=== PATIENT | male | born 1990 | race Caucasian/White ===

== ENCOUNTER 2017-03-31 14:49 | Inpatient (IN) | payer OTHER ==
[~2017-03-31] VITALS: Ht 170.2 cm; Wt 172.4 kg
[2017-03-31] MEDS ORDERED: ONDANSETRON 4 MG/2 ML VIAL IM PRN (15:30)
[2017-03-31] MEDS ORDERED: DICYCLOMINE HCL 20 MG TABLET PO PRN (15:30)
[2017-03-31] MEDS ORDERED: MIRALAX 17 GM POWD.PACK PO PRN (15:30)
[2017-03-31] MEDS ORDERED: ONDANSETRON ODT 4 MG TAB.RAPDIS SL PRN (15:30)
[2017-03-31] MEDS ORDERED: diphenhydrAMINE 50 MG CAPSULE PO PRN (15:30)
[2017-03-31] MEDS ORDERED: CLONIDINE HCL 0.1 MG TABLET PO PRN (15:30)
[2017-03-31] MEDS ORDERED: DOCUSATE SODIUM 250 MG CAPSULE PO PRN (15:30)
[2017-03-31] MEDS ORDERED: LOPERAMIDE HCL 2 MG CAPSULE PO PRN ×2 (15:30)
[2017-03-31] MEDS ORDERED: NICOTINE 14 MG/24HR PATCH TD PRN (15:30)
[2017-03-31] MEDS ORDERED: MAGNESIUM HYDROXIDE 30 ML LIQUID UDC PO PRN (15:30)
[2017-03-31] MEDS ORDERED: IBUPROFEN 600 MG TABLET PO PRN (15:30)
[2017-03-31] MEDS ORDERED: MAG HYDROX/AL HYDROX/SIMETH 30 ML LIQUID UDC PO PRN (15:30)
[2017-03-31] MEDS ORDERED: BUPRENORPHINE HCL 2 MG TAB.SUBL SL PRN (15:30)
[2017-03-31] MEDS ORDERED: BUSP15TA3 PO (15:46)
[2017-03-31] MEDS ORDERED: MULT-15 PO (15:46)
[2017-03-31] MEDS ORDERED: QUET50TA PO (15:46)
[2017-03-31] MEDS ORDERED: ARIP5TAB10 PO (15:46)
[2017-03-31] MEDS ORDERED: SERT100T PO (15:46)
[2017-03-31] MEDS ORDERED: HYDR25TA4 PO (15:46)
[2017-03-31] MEDS ORDERED: CLON0.1T PO (15:46)
[2017-03-31 16:39] LABS: *AMPHETAMINE, URINE NEGATIVE (NEGATIVE); *BARBITURATE, URINE NEGATIVE (NEGATIVE); *CANNABINOID, URINE NEGATIVE (NEGATIVE); *COCCAINE, URINE NEGATIVE (NEGATIVE); *OPIATE, URINE POSITIVE (NEGATIVE); *PHENCYCLIDINE SCREEN,URINE NEGATIVE (NEGATIVE)
[2017-03-31 16:50] VITALS: BP 132/88
[2017-03-31 20:00] VITALS: BP 108/60
[2017-03-31] MEDS: GABAPENTIN 300 MG CAPSULE PO SCH (20:35)
[2017-03-31] MEDS: HYDROXYZINE PAMOATE 25 MG CAPSULE PO PRN (20:35)
[2017-03-31] MEDS: METHOCARBAMOL 750 MG TABLET PO PRN (20:35)
[2017-03-31 21:53] LABS: BASOPHILS # (AUTO) 0.1 K/uL (0.0-8.0); BASOPHILS % (AUTO) 0.6 % (0.0-2.0); EOSINOPHILS # (AUTO) 0.1 K/uL (0.0-0.7); EOSINOPHILS % (AUTO) 1.3 % (0.0-7.0); HEMATOCRIT 38.7 % (36.7-47.1); LYMPHOCYTES # (AUTO) 1.3 K/uL (20.0-40.0); LYMPHOCYTES % (AUTO) 14.2 % (20.5-51.5); MEAN CORPUSCULAR HEMOGLOBIN 28.4 uug (23.8-33.4); MEAN CORPUSCULAR HGB CONC 34 g/dL (32.5-36.3); MEAN CORPUSCULAR VOLUME 84.7 fL (73.0-96.2); MONOCYTES # (AUTO) 0.4 K/uL (2.0-10.0); MONOCYTES % (AUTO) 4.4 % (0.0-11.0); NEUTROPHILS # (AUTO) 7.3 K/uL (1.8-8.9); NEUTROPHILS % (AUTO) 79.5 % (38.5-71.5); PLATELET COUNT (AUTO) 214 K/uL (152-348); RED BLOOD CELL COUNT(AUTO) 4.57 MIL/uL (4.06-5.63); WHITE BLOOD COUNT (AUTO) 9.1 K/uL (3.6-10.2)
[2017-03-31 22:04] LABS: ETHANOL < 3 MG/DL (0-0)
[2017-03-31 22:14] LABS: ALANINE AMINOTRANSFERASE 98 U/L (16-63); ALKALINE PHOSPHATASE 86 U/L (50-136); ASPARTATE AMINOTRANSFERASE 51 U/L (15-37); BILIRUBIN,TOTAL 0.3 mg/dL (0.2-1.0); CARBON DIOXIDE 30 mmol/L (21-32); CHLORIDE 103 mmol/L (98-107); CREATININE 0.8 mg/dL (0.6-1.3); GLUCOSE 111 mg/dL (74-106); MAGNESIUM 1.8 mg/dL (1.8-2.4); POTASSIUM 3.5 mmol/L (3.5-5.1); TOTAL PROTEIN, SERUM 7.4 g/dL (6.4-8.2); UREA NITROGEN, BLOOD 12 mg/dL (7-18)
[2017-03-31 22:21] LABS: THYROID STIMULATING HORMONE 3.367 mIU/mL (0.358-3.740)
[2017-04-01] VITALS: BP 119/68
[2017-04-01] MEDS: LORAZEPAM 1 MG TABLET PO PRN ×2 (01:04→01:21)
[2017-04-01 04:00] VITALS: BP 106/57
[2017-04-01 08:33] VITALS: BP 123/63
[2017-04-01] MEDS: GABAPENTIN 300 MG CAPSULE PO SCH ×3 (08:35→21:10)
[2017-04-01] MEDS: HYDROCHLOROTHIAZIDE 25 MG TABLET PO SCH (08:35)
[2017-04-01] MEDS: BUPRENORPHINE HCL 2 MG TAB.SUBL SL SCH ×3 (08:36→21:11)
[2017-04-01] MEDS ORDERED: TUBERCULIN,PURIF.PROT.DERIV. 5 TU/0.1 ML TEST ID ONE (09:00)
[2017-04-01] MEDS ORDERED: Medication Not On Formulary EA (Buspirone Hcl 15 MG) PO SCH (09:00)
[2017-04-01] MEDS: HYDROXYZINE PAMOATE 25 MG CAPSULE PO PRN ×2 (09:31→12:08)
[2017-04-01] MEDS: METHOCARBAMOL 750 MG TABLET PO PRN (09:31)
[2017-04-01] MEDS: ARIPIPRAZOLE 5 MG TABLET PO SCH (09:31)
[2017-04-01] MEDS: VENLAFAXINE XR 75 MG CAP.SR.24H PO SCH (09:31)
[2017-04-01] MEDS: busPIRone 10 MG TABLET PO SCH ×3 (09:31→16:34)
[2017-04-01] MEDS: SERTRALINE HCL 100 MG TABLET PO SCH ×2 (09:32→16:34)
[2017-04-01 13:31] VITALS: BP 106/60
[2017-04-01] MEDS: BACLOFEN 10 MG TABLET PO SCH ×2 (14:20→21:10)
[2017-04-01 17:01] VITALS: BP 114/84
[2017-04-01 20:00] VITALS: BP 125/73
[2017-04-01] MEDS ORDERED: Medication Not On Formulary EA (Quetiapine Fumarate (Seroquel) 50 MG) PO SCH (21:00)
[2017-04-01] MEDS ORDERED: QUETIAPINE FUMARATE 25 MG TABLET PO SCH (21:00)
[2017-04-01] MEDS: LACTOBACILLUS RHAMNOSUS GG 1 EACH CAPSULE PO SCH (21:10)
[2017-04-01] MEDS: DICYCLOMINE HCL 20 MG TABLET PO SCH (21:10)
[2017-04-01] MEDS: SULFAMETH/TRIMETH 800/160 MG TABLET PO SCH (21:11)
[2017-04-01] MEDS: CLONIDINE HCL 0.1 MG TABLET PO SCH (21:11)
[2017-04-02] VITALS (7 sets, daily range): BP systolic 102–127; BP diastolic 57–75
[2017-04-02] MEDS: LORAZEPAM 1 MG TABLET PO PRN (02:31)
[2017-04-02] MEDS: ARIPIPRAZOLE 5 MG TABLET PO SCH (08:55)
[2017-04-02] MEDS: BACLOFEN 10 MG TABLET PO SCH (08:56)
[2017-04-02] MEDS: SERTRALINE HCL 100 MG TABLET PO SCH ×2 (08:56→16:51)
[2017-04-02] MEDS: GABAPENTIN 300 MG CAPSULE PO SCH ×2 (08:56→14:23)
[2017-04-02] MEDS: CLONIDINE HCL 0.1 MG TABLET PO SCH ×3 (08:56→20:03)
[2017-04-02] MEDS: HYDROCHLOROTHIAZIDE 25 MG TABLET PO SCH (08:56)
[2017-04-02] MEDS: DICYCLOMINE HCL 20 MG TABLET PO SCH ×3 (08:56→20:04)
[2017-04-02] MEDS: SULFAMETH/TRIMETH 800/160 MG TABLET PO SCH ×2 (08:56→20:04)
[2017-04-02] MEDS: LACTOBACILLUS RHAMNOSUS GG 1 EACH CAPSULE PO SCH ×2 (08:56→20:03)
[2017-04-02] MEDS: VENLAFAXINE XR 75 MG CAP.SR.24H PO SCH (08:56)
[2017-04-02] MEDS: busPIRone 10 MG TABLET PO SCH ×3 (08:56→16:51)
[2017-04-02] MEDS ORDERED: BUPRENORPHINE HCL 2 MG TAB.SUBL SL SCH (09:00)
[2017-04-02 11:06] LABS: HEPATITIS B SURFACE AG Negative (Negative)
[2017-04-02] MEDS: HYDROXYZINE PAMOATE 25 MG CAPSULE PO PRN (13:06)
[2017-04-02] MEDS: BUPRENORPHINE HCL 2 MG TAB.SUBL SL SCH ×2 (14:23→20:04)
[2017-04-02] MEDS: BACLOFEN 20 MG TABLET PO SCH ×2 (14:23→20:03)
[2017-04-02] MEDS: QUETIAPINE FUMARATE 100 MG TABLET PO SCH (20:05)
[2017-04-02] MEDS ORDERED: QUETIAPINE FUMARATE 25 MG TABLET PO SCH (21:00)
[2017-04-02] MEDS ORDERED: GABAPENTIN 300 MG CAPSULE PO SCH (21:00)
[2017-04-02] MEDS: METHOCARBAMOL 750 MG TABLET PO PRN (23:05)
[2017-04-03 00:19] VITALS: BP 110/76
[2017-04-03] MEDS: ACETAMINOPHEN 325 MG TABLET PO PRN (03:08)
[2017-04-03 04:42] VITALS: BP 106/72
[2017-04-03 08:00] VITALS: BP 114/70
[2017-04-03] MEDS: DICYCLOMINE HCL 20 MG TABLET PO SCH ×3 (08:39→22:01)
[2017-04-03] MEDS: BUPRENORPHINE HCL 2 MG TAB.SUBL SL SCH ×3 (08:39→22:01)
[2017-04-03] MEDS: BACLOFEN 20 MG TABLET PO SCH ×3 (08:40→22:00)
[2017-04-03] MEDS: SERTRALINE HCL 100 MG TABLET PO SCH ×2 (08:40→16:46)
[2017-04-03] MEDS: ARIPIPRAZOLE 5 MG TABLET PO SCH (08:40)
[2017-04-03] MEDS: VENLAFAXINE XR 75 MG CAP.SR.24H PO SCH (08:40)
[2017-04-03] MEDS: HYDROCHLOROTHIAZIDE 25 MG TABLET PO SCH (08:40)
[2017-04-03] MEDS: GABAPENTIN 300 MG CAPSULE PO SCH ×3 (08:40→22:01)
[2017-04-03] MEDS: LACTOBACILLUS RHAMNOSUS GG 1 EACH CAPSULE PO SCH ×2 (08:40→22:00)
[2017-04-03] MEDS: SULFAMETH/TRIMETH 800/160 MG TABLET PO SCH ×2 (08:41→22:00)
[2017-04-03] MEDS: busPIRone 10 MG TABLET PO SCH ×3 (08:41→16:46)
[2017-04-03] MEDS: CLONIDINE HCL 0.1 MG TABLET PO SCH ×3 (08:41→22:00)
[2017-04-03 12:00] VITALS: BP 109/63
[2017-04-03] MEDS: HYDROXYZINE PAMOATE 25 MG CAPSULE PO PRN (12:09)
[2017-04-03] MEDS: METHOCARBAMOL 750 MG TABLET PO PRN (12:09)
[2017-04-03] MEDS ORDERED: LORAZEPAM 1 MG TABLET PO SCH ×2 (15:00→21:00)
[2017-04-03 16:00] VITALS: BP 109/63
[2017-04-03 20:23] VITALS: BP 139/68
[2017-04-03] MEDS: QUETIAPINE FUMARATE 100 MG TABLET PO SCH (22:00)
[2017-04-03] MEDS: NICOTINE POLACRILEX 4 MG GUM-PK OF TEN BC PRN (23:38)
[2017-04-04 00:15] VITALS: BP 128/68
[2017-04-04] MEDS: HYDROXYZINE PAMOATE 25 MG CAPSULE PO PRN (02:20)
[2017-04-04 04:29] VITALS: BP 130/67
[2017-04-04 08:30] VITALS: BP 136/73
[2017-04-04] MEDS: SERTRALINE HCL 100 MG TABLET PO SCH ×2 (08:32→16:45)
[2017-04-04] MEDS: LORAZEPAM 1 MG TABLET PO SCH ×2 (08:32→20:57)
[2017-04-04] MEDS: SULFAMETH/TRIMETH 800/160 MG TABLET PO SCH ×2 (08:32→20:56)
[2017-04-04] MEDS: LACTOBACILLUS RHAMNOSUS GG 1 EACH CAPSULE PO SCH ×2 (08:32→20:56)
[2017-04-04] MEDS: VENLAFAXINE XR 75 MG CAP.SR.24H PO SCH (08:32)
[2017-04-04] MEDS: ARIPIPRAZOLE 5 MG TABLET PO SCH (08:32)
[2017-04-04] MEDS: GABAPENTIN 300 MG CAPSULE PO SCH ×3 (08:32→20:56)
[2017-04-04] MEDS: DICYCLOMINE HCL 20 MG TABLET PO SCH ×3 (08:32→20:56)
[2017-04-04] MEDS: BACLOFEN 20 MG TABLET PO SCH ×3 (08:32→20:56)
[2017-04-04] MEDS: HYDROCHLOROTHIAZIDE 25 MG TABLET PO SCH (08:32)
[2017-04-04] MEDS: CLONIDINE HCL 0.1 MG TABLET PO SCH ×3 (08:33→21:00)
[2017-04-04] MEDS: BUPRENORPHINE HCL 2 MG TAB.SUBL SL SCH ×2 (08:33→20:57)
[2017-04-04] MEDS: busPIRone 10 MG TABLET PO SCH ×3 (08:33→16:45)
[2017-04-04] MEDS ORDERED: BUPRENORPHINE HCL 2 MG TAB.SUBL SL SCH (09:00)
[2017-04-04] MEDS ORDERED: KETOROLAC TROMETHAMINE 30 MG INJ IM PRN (12:15)
[2017-04-04 12:44] VITALS: BP 145/79
[2017-04-04] MEDS: ACETAMINOPHEN 325 MG TABLET PO PRN (13:54)
[2017-04-04 17:39] VITALS: BP 136/83
[2017-04-04 20:00] VITALS: BP 96/58
[2017-04-04] MEDS: QUETIAPINE FUMARATE 100 MG TABLET PO SCH (20:56)
[2017-04-04] MEDS: NAPROXEN 500 MG TABLET PO SCH (20:56)
[2017-04-05] VITALS (7 sets, daily range): BP systolic 96–140; BP diastolic 57–89
[2017-04-05] MEDS: HYDROXYZINE PAMOATE 25 MG CAPSULE PO PRN ×2 (04:58→23:34)
[2017-04-05] MEDS: METHOCARBAMOL 750 MG TABLET PO PRN (04:58)
[2017-04-05] MEDS: CLONIDINE HCL 0.1 MG TABLET PO SCH ×3 (08:32→21:31)
[2017-04-05] MEDS: HYDROCHLOROTHIAZIDE 25 MG TABLET PO SCH (08:32)
[2017-04-05] MEDS: FAMOTIDINE 20 MG TABLET PO SCH (08:32)
[2017-04-05] MEDS: DICYCLOMINE HCL 20 MG TABLET PO SCH ×3 (08:32→21:31)
[2017-04-05] MEDS: VENLAFAXINE XR 75 MG CAP.SR.24H PO SCH (08:32)
[2017-04-05] MEDS: busPIRone 10 MG TABLET PO SCH ×3 (08:32→16:37)
[2017-04-05] MEDS: BACLOFEN 20 MG TABLET PO SCH ×3 (08:32→21:31)
[2017-04-05] MEDS: SERTRALINE HCL 100 MG TABLET PO SCH ×2 (08:33→16:38)
[2017-04-05] MEDS: NAPROXEN 500 MG TABLET PO SCH ×2 (08:33→21:31)
[2017-04-05] MEDS: ARIPIPRAZOLE 5 MG TABLET PO SCH (08:33)
[2017-04-05] MEDS: LACTOBACILLUS RHAMNOSUS GG 1 EACH CAPSULE PO SCH ×2 (08:33→21:31)
[2017-04-05] MEDS: SULFAMETH/TRIMETH 800/160 MG TABLET PO SCH ×2 (08:33→21:32)
[2017-04-05] MEDS: GABAPENTIN 300 MG CAPSULE PO SCH ×3 (08:33→21:31)
[2017-04-05] MEDS ORDERED: BUPRENORPHINE HCL 2 MG TAB.SUBL SL SCH (09:00)
[2017-04-05] MEDS ORDERED: LORAZEPAM 1 MG TABLET PO SCH (09:00)
[2017-04-05] MEDS ORDERED: HYDR25TA4 PO (16:26)
[2017-04-05] MEDS ORDERED: GABA-534 PO ×2 (16:26)
[2017-04-05] MEDS ORDERED: DICY20TA28 PO (16:26)
[2017-04-05] MEDS ORDERED: BACL20TA PO (16:26)
[2017-04-05] MEDS ORDERED: CLON0.1T14 PO (16:26)
[2017-04-05] MEDS ORDERED: ACET325T53 PO (16:26)
[2017-04-05] MEDS ORDERED: FAMO20TA8 PO (16:26)
[2017-04-05] MEDS ORDERED: NAPR500T4 PO (16:26)
[2017-04-05] MEDS ORDERED: HYDR-3895 PO (16:26)
[2017-04-05] MEDS: QUETIAPINE FUMARATE 100 MG TABLET PO SCH (21:31)
[2017-04-05] MEDS: NICOTINE POLACRILEX 4 MG GUM-PK OF TEN BC PRN (23:34)
[2017-04-06] VITALS: BP 113/64
[2017-04-06 04:00] VITALS: BP 99/60
[2017-04-06 08:00] VITALS: BP 112/76
[2017-04-06] MEDS: busPIRone 10 MG TABLET PO SCH (08:10)
[2017-04-06] MEDS: ARIPIPRAZOLE 5 MG TABLET PO SCH (08:10)
[2017-04-06] MEDS: DICYCLOMINE HCL 20 MG TABLET PO SCH (08:10)
[2017-04-06] MEDS: SULFAMETH/TRIMETH 800/160 MG TABLET PO SCH (08:10)
[2017-04-06 08:11] VITALS: BP 112/76
[2017-04-06] MEDS: BACLOFEN 20 MG TABLET PO SCH (08:11)
[2017-04-06] MEDS: CLONIDINE HCL 0.1 MG TABLET PO SCH (08:11)
[2017-04-06] MEDS: NAPROXEN 500 MG TABLET PO SCH (08:11)
[2017-04-06] MEDS: LACTOBACILLUS RHAMNOSUS GG 1 EACH CAPSULE PO SCH (08:11)
[2017-04-06] MEDS: GABAPENTIN 300 MG CAPSULE PO SCH (08:11)
[2017-04-06] MEDS: FAMOTIDINE 20 MG TABLET PO SCH (08:11)
[2017-04-06] MEDS: HYDROCHLOROTHIAZIDE 25 MG TABLET PO SCH (08:11)
[2017-04-06] MEDS: VENLAFAXINE XR 75 MG CAP.SR.24H PO SCH (08:11)
[2017-04-06] MEDS: SERTRALINE HCL 100 MG TABLET PO SCH (08:11)
== END 2017-04-06 09:30 | disposition other institution (70) | DRG 895 ==
LOC: SRC 14:49
PROVIDERS: ADMIT Internal Medicine; ATTEND Internal Medicine
PROC: HZ2ZZZZ Detoxification Services for Substance Abuse Treatment (ICD-10-PCS; principal; 2017-03-31)
PROC: HZ31ZZZ Individual Counseling for Substance Abuse Treatment, Behavioral (ICD-10-PCS; 2017-04-02)
PROC: HZ41ZZZ Group Counseling for Substance Abuse Treatment, Behavioral (ICD-10-PCS; 2017-04-03)
DX: F11.23 Opioid dependence with withdrawal (principal); F33.2 Major depressive disorder, recurrent severe without psychotic features; E66.01 Morbid (severe) obesity due to excess calories; I15.9 Secondary hypertension, unspecified; K76.0 Fatty (change of) liver, not elsewhere classified; Z68.43 Body mass index [BMI] 50.0-59.9, adult; L03.116 Cellulitis of left lower limb; F13.230 Sedative, hypnotic or anxiolytic dependence with withdrawal, uncomplicated; F17.210 Nicotine dependence, cigarettes, uncomplicated; G47.33 Obstructive sleep apnea (adult) (pediatric); Z71.3 Dietary counseling and surveillance; G47.00 Insomnia, unspecified; F41.9 Anxiety disorder, unspecified; Z91.5 Personal history of self-harm; Z80.1 Family history of malignant neoplasm of trachea, bronchus and lung; Z83.2 Family history of diseases of the blood and blood-forming organs and certain disorders involving the immune mechanism; Z59.1 Inadequate housing; Z79.899 Other long term (current) drug therapy
CPT/HCPCS: 36415; 70030-TC; 80307; 80361; 83735; 84443; 85025; 86580; 86592; 86705; 86803; 87340; 87806; G0480; J1885; Q0162; Q0163